=== PATIENT | female | born 1985 | race Caucasian/White ===

== ENCOUNTER 2017-02-24 13:41 | Emergency (ER) | payer MEDICAID ==
[~2017-02-24] VITALS: Ht 160 cm; Wt 63.5 kg
--- NOTE | 2017-02-24 13:42 | NUR ---
EMS TRANSFERRED PATIENT FORM GURNEY TO ER BED#1.
[2017-02-24 13:43] VITALS: BP 111/67
--- NOTE | 2017-02-24 13:43 | NUR ---
PT RESTING. SEIZURE PRECAUTIONS IN PLACE. VSS. BED IN LOWEST POSITION. SIDE RAILS UP AND PADDED. ERMD NOTIFIED OF PATIENT STATUS. WILL CONTINUE TO MONITOR.
--- NOTE | 2017-02-24 13:44 | NUR ---
Patient being evaluated by physician at bedside.
[2017-02-24] MEDS ORDERED: LORazepam 2 MG/ML VIAL ONE (13:49)
--- NOTE | 2017-02-24 13:50 | NUR ---
31/F BIB EMS FROM FIELD FOR SEIZURE AWAKE ON ARRIVAL REPSONDS TO VERBAL STIMULI BY MOVING HER HEAD. VSS. AAOx4 UPON ARRIVAL, BREATHING EVEN AND UNLABORED, EMS STATES PT WAS GIVEN 7.5mg VERSED IVP ON THE FIELD.IV ACCESS #20GA LEFT AC PATENT AND INTACT. ERMD NOTIFIED OF STATUS. WILL CONTINUE TO MONITOR.
--- NOTE | 2017-02-24 14:01 | NUR ---
PT TAKEN TO RADIOLOGY VIA GURNEY BY MOLDER CLOSED MOLDS.
--- NOTE | 2017-02-24 14:10 | NUR ---
PT RETURNED FROM RADIOLOGY.
--- NOTE | 2017-02-24 14:37 | NUR ---
Patient appears to be resting comfortably in bed. Vital Signs within normal limits. Respirations even and unlabored.
[2017-02-24] MEDS ORDERED: NACL 0.9% 1,000 ML IV ONE (14:40)
[2017-02-24] MEDS ORDERED: LORazepam 2 MG/ML VIAL IVP ONE (14:50)
--- NOTE | 2017-02-24 15:14 | NUR ---
PT RESTING. AAOX4 ; VSS; PATIENT POSITIONED FOR COMFORT; HOB ELEVATED; BEDRAILS UP X2; BED DOWN. AT BEDSIDE. ER MD MADE AWARE OF PT STATUS. WILL CONTINUE TO MONITOR.
[2017-02-24 16:43] VITALS: BP 106/70
--- NOTE | 2017-02-24 16:43 | NUR ---
Patient discharged with v/s stable. Written and verbal after care instructions given and explained. Patient alert, oriented and verbalized understanding of instructions. Ambulatory with steady gait. All questions addressed prior to discharge. ID band removed. Patient advised to follow up with PMD. Rx of CIPRO 500MG TAB given. Patient educated on indication of medication including possible reaction and side effects. Opportunity to ask questions provided and answered.
== END 2017-02-24 16:43 | disposition home or self-care (01) ==
LOC: MED 13:41
DX: F12.10 Cannabis abuse, uncomplicated (principal); N39.0 Urinary tract infection, site not specified; F41.9 Anxiety disorder, unspecified
CPT/HCPCS: 36415; 70450; 72125; 80053; 80305; 81001; 81025; 83605; 84484; 85025; 87086; 93005; 96361; 96374; 99285; J2060; J7030